=== PATIENT | female | born 1975 | race Caucasian/White ===

== ENCOUNTER 2016-07-18 07:03 | Inpatient (IN) ==
--- NOTE | 2016-07-17 21:18 | Discharge Summary ---
<Coral Lancaster - Last Filed: 07/17/16 21:14> Date of Encounter: 07/17/16 - Discharge Diagnosis (1) Arthritis of knee, left Priority: Primary Status: Acute (2) Obesity Priority: Secondary Status: Chronic Qualifiers: Obesity type: unspecified obesity type Obesity severity: morbid Qualified Code(s): E66.01 - Morbid (severe) obesity due to excess calories (3) Thyroid disease Priority: Secondary Status: Chronic - Discharge Medications Home Medications: Aspirin Enteric Coated [Aspirin EC] 325 mg PO DAILY #21 tablet.dr 07/17/16 [Rx] OxyCODONE Immed Rel [Roxicodone 5 MG] 5 - 10 mg PO Q6HR PRN #40 tablet 07/17/16 [Rx] Levothyroxine [Synthroid] [place] [address]/18/16 [History] Norethindrone 0.35 mg PO DAILY 07/18/16 [History] Allergies/Adverse Reactions: Allergies No Known Allergies Allergy (Verified 07/18/16 10:43) Primary care physician: Aletha Calhoun - Patient Status Disposition: Home, Self-Care Condition: Good - Discharge Instructions Follow Up With: Aletha Calhoun [Other] - Hospital Course Hospital course: Ms. Douglass is a 41 year old female - Time Spent with Patient Total time spent providing and/or coordinating discharge services: <Rivera Zaragoza - Last Filed: 07/19/16 06:39> Date of Encounter: 07/19/16 Time of Encounter: 06:39 - Discharge Diagnosis (1) Arthritis of knee, left Priority: Primary Status: Acute (2) Obesity Priority: Secondary Status: Chronic Qualifiers: Obesity type: unspecified obesity type Obesity severity: morbid Qualified Code(s): E66.01 - Morbid (severe) obesity due to excess calories (3) Thyroid disease Priority: Secondary Status: Chronic Primary care physician: Aletha Calhoun - Patient Status Functional capacity at discharge: uses cane/walker Overall status at discharge: patient is progressing back to baseline - Hospital Course Hospital course: Ms. Douglass is a 41 year old female The patient had an uneventful postoperative course. They received antibiotics and physical therapy and were discharged in stable condition. There will follow -up in the office in 2 weeks. Aspirin DVT prophylaxis - Time Spent with Patient Total time spent providing and/or coordinating discharge services:
--- NOTE | 2016-07-18 07:15 | Anesthesia Evaluation PreOp ---
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 07/17/16 [Rx] OxyCODONE Immed Rel [Roxicodone 5 MG] 5 - 10 mg PO Q6HR PRN #40 tablet 07/17/16 [Rx] Allergies No Known Allergies Allergy (Verified 07/18/16 07:43) - Meds/Allergy Pre-op Review Medications Reviewed: Yes Allergies Reviewed: Yes Beta Blockers on Current Med List: No Anesthesia Results - Labs Laboratory Tests 07/13/16 07/13/16 07/13/16 15:00 15:00 15:00 WBC 6.3 Hgb 12.9 Hct 39.8 Plt Count 306 PT 10.7 INR 1.0 APTT 25.3 L Sodium 141 Potassium 3.8 BUN 10 Creatinine 0.78 Laboratory Tests 07/13/16 15:00 Serum , Qual Negative Anesthesia Exam O2 Sat Height 1.8 m Height 1.8 m Weight 92.079 kg Weight 92.079 kg O2 Sat by Pulse Oximetry 99 Vital Signs Temp Pulse Resp BP Pulse Ox 98.6 F 85 18 135/70 99 07/18/16 07:17 07/18/16 07:17 07/18/16 07:17 07/18/16 07:17 07/18/16 07:17 Height: 5'11'' Weight: 203 lbs NPO (# of Hours): 8 Pain Scale: 0 Pain Scale Used: Numeric (1 - 10) - HEENT Pupil (Motor): EOMI Mallampati: II Teeth: Normal (broken left lower molar) Oral Opening: Greater than 3 - EXPLOSIVE ORDNANCE DISPOSAL TECHNICIAN LOC: Oriented EXPLOSIVE ORDNANCE DISPOSAL TECHNICIAN Motor: Normal RUE, Normal LUE, Normal RLE, Normal LLE, Normal Face EXPLOSIVE ORDNANCE DISPOSAL TECHNICIAN Sensory: Normal: RUE, LUE, RLE, LLE, Face - Cardiac Rhythm: Regular Murmur: None - Pulmonary Breath Sounds: bilateral Clear Respiratory Effort: Symmetrical Anesthesia Assess/Plan ASA Score: 2 Modified Michelle Scale for Level of Consciousness: Cooperative, oriented, and tranquil Anesthetic Plan: General, Regional Monitoring Plan: Standard Monitors Recovery Plan: PACU
[2016-07-18] MEDS ORDERED: *HR* Propofol 200 MG/20 ML VIAL IVP ONE (07:23)
[2016-07-18] MEDS ORDERED: *HR* FentaNYL (PF) 100 MCG/2 ML VIAL ONE ×2 (07:23→11:18)
[2016-07-18] MEDS ORDERED: Ketorolac 30 MG/ML VIAL ONE (07:23)
[2016-07-18] MEDS ORDERED: Lidocaine -MPF 1% 2 ML VIAL ID ONE (07:23)
[2016-07-18] MEDS ORDERED: *HR* Midazolam HCl 2 MG/2 ML VIAL ONE (07:23)
[2016-07-18] MEDS ORDERED: Lidocaine -MPF 2% 2 ML VIAL ONE (07:23)
[2016-07-18] MEDS ORDERED: Ondansetron 4 MG/2 ML VIAL ONE (07:23)
[2016-07-18] MEDS ORDERED: CeFAZolin Pre 2,000 MG/100 ML 2,000 MG/100 ML BAG IVPB ONE (07:23)
[2016-07-18] MEDS ORDERED: Scopolamine Patch 1.5 MG PATCH.TD72 TD ONE (07:25)
[2016-07-18] MEDS: Ringers Solution, Lactated 1,000 ML IVC SCH ×2 (07:35→12:31)
[2016-07-18] MEDS ORDERED: Lidocaine -MPF 1% 2 ML VIAL ONE (07:35)
[2016-07-18] MEDS ORDERED: Bupivacaine/Clonidine Syringe 1 EACH SYRINGE ONE (07:53)
--- NOTE | 2016-07-18 08:08 | History & Physical Report ---
Date of Encounter: 07/18/16 Time of Encounter: 08:08 24 Hour HP Update - Instructions Instructions: If the History and Physical is less than 30 days old and was completed prior to A.M. admission and or procedure and has NOT been updated on calendar day of procedure please complete this update prior to performing procedure. - Update Patient reports changes in Medical Condition: No Changes in examination, assessment, or condition: No Changes in Medication: No Preop tests/diagnostics Reviewed: Yes Surgery Remains Indicated: Yes Consent for Planned Operative Procedure(s) Verified: Yes - Pre-Operative Checklist Preoperative Checklist Indicated: No Prophylactic Antibiotic Ordered: Yes Is VTE Prophylaxis Indicated?: Yes
--- NOTE | 2016-07-18 10:16 | Anesthesia Procedures ---
Date of Encounter: 07/18/16 Time of Encounter: 09:15 Procedures: Anesthesia - Nerve Block Procedure Date: 07/18/16 Time: 09:00 Pre-op Diagnosis: Left Knee Pain Surgical Procedure: Left Troplastotal Knee Art Checklist: Correct Patient Identifier, Correct procedure, History checked Correct side: Left Blood Thinner: No Monitor Applied: EKG, BP, Pulse Oximetry Supplemental Oxygen via Nasal Cannula (L/min): 2 Sedation: Versed (mg): 2 Sedation: Fentanyl (mcg): 100 Indication: Post Op Analgesia Pre-op Neuro Deficits: No Block Type: Femoral Catheter placed: No Sterile Technique: Yes Ultrasound used: Yes Anatomy identified: Yes Visual spread of Local: Yes Neuro Stimulation: Yes Nerve Stimulator Range: >0.4 - 0.6 mA Blood on Needle Aspiration: Yes (Corrected with needle re-adjustment) Smooth Injection of Local: Yes Pain with Injection of Local: No Prep: Chlorhexadine Needle: 22 x 50 mm Stimuplex Local: 0.25% Bupivicaine w/Clonidine 20 mcg/cc Volume (cc): 20 Complications: None/effective block Vitals: vss
[2016-07-18] MEDS ORDERED: Ondansetron 4 MG/2 ML VIAL IVP PRN ×2 (10:18→12:56)
--- NOTE | 2016-07-18 11:15 | Orthopedic Operative Note ---
Date of procedure: 07/18/16 Pre-op diagnosis: Left knee arthritis Post-op diagnosis: same Procedure: Procedure: Left Total knee replacement Estimated blood loss: 200 cc Hardware: Metal and polyethylene replacement. Arthrex Femur: 7 Tibia: 5 PS insert: 12 Patella: 37 Exam Under anesthesia: Loss of full flexion 45 degrees flexion 110 degrees no instability Procedural Notes: Grade 4 arthritic changes patellofemoral joint grade 3 arthritic changes medial compartment. Operative procedure: The patient was brought to the operating room and placed on the operating room table. After general anesthesia was administered the operative knee was examined. Findings were noted in the exam under anesthesia. The operative extremity was prepped and draped in sterile surgical fashion. The patient received IV antibiotics prior to skin incision. A standard midline incision was made centered over the patella. The incision was made through the skin and subcutaneous tissue. A medial parapatellar tendon approach was performed. Care was taken to preserve tissue along the medial aspect of the patella. And to protect the patella tendon. The deep MCL was released off the medial tibia. The infra patella fat pad was excised. Knee was brought into flexion. Patient noted to have grade 4:30 changes patellofemoral joint grade 3 arthritic changes medial compartment. The entry hole was made for the intramedullary femoral guide. The guide was seated in 6 degrees of valgus. Anterior cut was made followed by the distal cut. The ACL the PCL the medial and the lateral menisci were excised. The tibia was subluxed forward. The entry hole was made for the intramedullary tibial guide. Guide was seated to resect 2 mm off the more abnormal side. The knee was brought into flexion the distal femur was sized to a 7. The femoral guide was seated, the anterior cut was made followed by the posterior condylar cut, followed by the chamfer cuts. The finishing guide was seated the box cut was made and the lug holes were drilled. The tibia was sized to a 5, the tibial tray was seated and prepared with the large drill followed by the fin cutter. Trial reduction revealed full extension no varus valgus instability with the appropriate 12 PS Carito. The patella was everted and cut was made at the level of the insertion of the quadriceps and patella tendon. The patella was sized 37 the guide was seated and the lug holes are drilled. Trial reduction revealed excellent patella tracking. All trial components were removed all bony surfaces were irrigated. The tibia was cemented first followed by the femur. The 12 PS Carito was seated and the knee was brought into full extension. The patella was cemented and held in place with the patellar holding clamp. After the cement had hardened, the knee sat for 2 minutes with a Betadine saline solution. The knee was then irrigated out with 2 L of pulse irrigation. The extensor mechanism was closed with #2 FiberWire suture and #2 PDS suture. The subcutaneous tissue was then irrigated and closed deep with #1 PDS suture superficially with 0 PDS suture and skin was closed with skin klaus. The patient was then placed in a sterile dressing and a postoperative brace extubated and transferred to recovery room in stable condition. Anesthesia: KARMEN Surgeon: Rivera Zaragoza Strap Cutter: Sigrid Fry Condition: stable Disposition: PACU
[2016-07-18] MEDS ORDERED: *HR* HYDROmorphone 2 MG/ML SYRINGE ONE (11:59)
[2016-07-18] MEDS: *HR* HYDROmorphone (PF) 1 MG/ML SYRINGE IVP PRN ×2 (12:07→12:12)
[2016-07-18 12:27] LABS: Hematocrit 34.9 % (35.3-44.9); Hemoglobin 11.5 g/dL (11.5-15.4)
--- NOTE | 2016-07-18 12:27 | Anesthesia Evaluation Post Op ---
Date of Encounter: 07/18/16 Time of Encounter: 12:26 - Vital Signs Vital Signs: Vital Signs/O2 Sat, Most Current Temp Pulse Resp BP Pulse Ox 97.7 F 69 15 120/69 98 07/18/16 12:03 07/18/16 12:23 07/18/16 12:23 07/18/16 12:23 07/18/16 12:23 - Lungs Lungs: Clear Ascult./Percussion - Airway Airway: Non-obstructed - Cardiovascular Regular Rate - Mental Status Mental Status: Alert & Oriented, Answers Appropriately - Pain Pain Scale: 3 Pain Scale used: Numeric (1 - 10) - Nausea Vomiting Nausea Vomiting: Not Present - Hydration Hydration: Ice chips, Has not voided - Discharge PostOp Status: Transfer Patient to floor
[2016-07-18] MEDS ORDERED: *HR* HYDROmorphone (PF) 1 MG/ML SYRINGE IVP PRN (12:56)
[2016-07-18] MEDS ORDERED: Sennosides 8.6 MG TABLET PO PRN (12:56)
[2016-07-18] MEDS ORDERED: Ringers Solution, Lactated 1,000 ML IVC SCH (12:56)
[2016-07-18] MEDS ORDERED: *HR* OxyCODONE Immed Rel 5 MG TABLET PO PRN (12:56)
[2016-07-18] MEDS ORDERED: MOM Conc 10 ML UD.LIQ PO PRN (12:56)
[2016-07-18] MEDS ORDERED: Naloxone 0.4 MG/ML INJ IVP PRN (12:56)
[2016-07-18] MEDS: ceFAZolin 2,000 MG in D5% in Water 100 ML IVPB SCH (17:23)
[2016-07-18] MEDS: *HR* Enoxaparin 30 MG/0.3 ML SYRINGE SQ SCH (17:23)
[2016-07-18] MEDS ORDERED: *HR* Enoxaparin 30 MG/0.3 ML SYRINGE SQ SCH (18:00)
[2016-07-18] MEDS ORDERED: Temazepam 15 MG CAPSULE PO PRN (21:00)
[2016-07-18] MEDS: *HR* OxyCODONE Immed Rel 5 MG TABLET PO PRN (21:51)
[2016-07-19] MEDS: ceFAZolin 2,000 MG in D5% in Water 100 ML IVPB SCH (00:17)
[2016-07-19] MEDS: *HR* OxyCODONE Immed Rel 5 MG TABLET PO PRN ×2 (06:01→10:42)
[2016-07-19] MEDS: *HR* Enoxaparin 30 MG/0.3 ML SYRINGE SQ SCH (06:02)
[2016-07-19 06:37] LABS: Hemoglobin 10.7 g/dL (11.5-15.4)
--- NOTE | 2016-07-19 06:40 | Orthopedics Progress Note ---
Date of Encounter: 07/19/16 Time of Encounter: 06:39 - Assessment and Plan (1) Arthritis of knee, left Current Visit: Yes Status: Acute (2) Obesity Current Visit: Yes Status: Chronic Qualifiers: Obesity type: unspecified obesity type Obesity severity: morbid Qualified Code(s): E66.01 - Morbid (severe) obesity due to excess calories (3) Thyroid disease Current Visit: Yes Status: Chronic Subjective Interval history: Patient was seen this morning doing well without complaints. Afebrile vital signs stable. Operative extremity: Neurovascularly intact Dressing clean dry and intact Calves nontender Assessment and plan: Continue with postoperative care Hematocrit 33 Objective Vital signs: Vital Signs Temp Pulse Resp BP Pulse Ox 07/19/16 06:34 99.5 F 87 18 127/74 97 07/19/16 04:03 99 F 78 16 124/76 98 07/18/16 23:22 98.8 F 90 16 123/75 98 07/18/16 21:45 98.5 F 89 16 116/75 99 07/18/16 15:35 97.2 F L 71 18 133/72 100 07/18/16 14:42 97.9 F 74 18 117/64 99 07/18/16 14:32 74 16 133/62 100 07/18/16 13:41 98.4 F 74 16 133/62 100 07/18/16 13:01 66 15 120/70 98 07/18/16 12:55 97.7 F 68 18 128/66 99 07/18/16 12:43 97.3 F L 65 15 123/67 98 07/18/16 12:33 97.3 F L 67 14 119/66 98 07/18/16 12:23 69 15 120/69 98 07/18/16 12:13 68 14 126/64 91 07/18/16 12:03 97.7 F 75 16 127/66 97 07/18/16 10:09 70 130/76 99 07/18/16 09:49 75 131/68 99 07/18/16 09:29 69 135/66 98 07/18/16 09:10 73 151/67 99 07/18/16 08:40 84 144/71 100 07/18/16 07:17 98.6 F 85 18 135/70 99 Intake and Output 07/18/16 07/18/16 07/19/16 15:59 23:59 07:59 Intake Total 100 / 100 580 / 580 100 / 100 Output Total 200 / 200 100 / 100 550 / 550 Balance -100 / -100 480 / 480 -450 / -450 Intake: IV Fluids 100 / 100 100 / 100 100 / 100 Lactated Ringers 1,000 ML 0 / 0 @ 25 mls/hr IVC .Q24H [facility] Rx#:[id number] Ancef Premix 2,000 MG/100 100 / 100 ML 2,000 mg In 100 ml @ 200 mls/hr IVPB PREOP ONE Rx#:[id number] Ancef 2,000 MG In 100 / 100 100 / 100 Dextrose 5% 100 ML @ 200 mls/hr IVPB Q8HR [facility] Rx#: [id number] Oral 480 / 480 Output: Urine 550 / 550 Emesis 100 / 100 Estimated Blood Loss 200 / 200 Other: Meal Dinner Percent of Meal Consumed 5% Weight 93.6 kg Patient Weight 07/19/16 23:59 Weight 93.6 kg - Labs CBC & BMP: 07/19/16 05:50 Labs: Abnormal lab results Hgb 10.7 g/dL (11.5-15.4) L 07/19/16 05:50 Hct 33.0 % (35.3-44.9) L 07/19/16 05:50 Consult Discharge Plan - Plan Referrals: Aletha Calhoun [Other]
[2016-07-19 06:49] LABS: BUN/Creatinine Ratio 11 (6-26); Blood Urea Nitrogen 7 mg/dL (7-20); Calcium 8.8 mg/dL (8.6-10.8); Carbon Dioxide 23 mEq/L (19-29); Chloride 108 mEq/L (98-109); Glucose 88 mg/dL (70-99); Osmolality,Calculated 281 (280-300); Potassium 3.9 mEq/L (3.5-4.5); Sodium 137 mEq/L (136-145); eGFR For African Americans > 60 (> 60); eGFR For Non-African Americans > 60 (> 60)
[2016-07-19] MEDS ORDERED: NORETHINDRONE 0.35 MG PO SCH (09:00)
[2016-07-19 11:21] VITALS: BP 122/75
== END 2016-07-19 14:40 | disposition home or self-care (01) | DRG 470 ==
LOC: SAMDAY 07:03 → 3NENU 12:54
PROVIDERS: ADMIT Orthopaedic Surgery; ATTEND Orthopaedic Surgery